=== PATIENT | female | born 1945 | race Caucasian/White ===

== ENCOUNTER 2020-03-15 08:23 | Emergency (ER) | payer OTHER ==
[2020-03-15 08:29] VITALS: BP 150/62; PULSE 73; TEMP 97.8; BMI 35.2
--- OUTSIDE RECORDS SUMMARY | 2020-03-15 08:36 | XMS ---
:1945 Author Organization [facility] Support Name Relationship Address Phone RE Unavailable Unavailable Unavailable JAY JAMES DAUGHTER [address] [place] [address] DALE JAMES DA [address] [facility] [phone] [place] [address] RETIRED Unavailable NA """""" [place] [address] WAGGONERELIZABETH Ellis PATSY [address] [facility] [phone] [place] [address] Re-disclosure Warning The records that you are about to access may contain information from federally- assisted alcohol or drug abuse programs. If such information is present, then the following federally mandated warning applies: This information has been disclosed to you from records protected by federal confidentiality rules (42 CFR part 2). The federal rules prohibit you from making any further disclosure of this information unless further disclosure is expressly permitted by the written consent of the person to whom it pertains or as otherwise permitted by 42 CFR part 2. A general authorization for the release of medical or other information is NOT sufficient for this purpose. The Federal rules restrict any use of the information to criminally investigate or prosecute any alcohol or drug abuse patient.The records that you are about to access may contain highly sensitive health information, the redisclosure of which is protected by Article 27-F of the [facility] Public Health law. If you continue you may haveaccess to information: Regarding HIV / AIDS; Provided by facilities licensed or operated by the [facility] Office of Mental Health; or Provided by the [facility] Office for People With Developmental Disabilities. If such information is present, then the following [facility] mandated warning applies: This information has been disclosed to you from confidential records which are protected by state law. State law prohibits you from making any further disclosure of this information without the specific written consent of the person to whom it pertains, or as otherwise permitted by law. Any unauthorized further disclosure in violation of state law may result in a fine or [place] [facility] sentence or both. A general authorization for the release of medical or other information is NOT sufficient authorization for further disclosure. Insurance Providers Payer name Policy type Policy ID Covered Covered democrat's Policy P nitesh / Coverage democrat ID relationship to Foy Inf ormation type foy AETNA [id number] SP [id number] MEDICARE AETNA USHC [id number] self [id number] AETNA USHC O [id number] 01 [id number] Results ID Date Data Source [id number] 03/04/2020 11:32:00 AM EDT [facility] Received: 03/04/2020 at 01:49:00 QTE : [facility], [address], Jose Barney MD Received: 03/04/2020 at 01:49:00 QTE : [place], [address]Jose MD Received: 03/04/2020 at 01:49:00 QTE : [facility] [place], [address], Jose Barney MD Received: 03/04/2020 at 01:49:00 QTE : [facility] [place], [address]Jose MD Received: 03/04/2020 at 01:49:00 QTE : [facility] [place], [address]Jose MD Received: 03/04/2020 at 01:49:00 QTE : [facility] [place], [address]Jose MD Received: 03/04/2020 at 01:49:00 QTE : [facility] [place], [address]Jose MD Received: 03/04/2020 at 01:49:00 QTE : [facility] [place], [address], Jose Barney MD Name Value Range Interpretation Description Data Sup porting Code Source(s) Document(s ) Cholesterol 222 <200 Above high [facility] [Mass/volume] mg/dL normal Diagnostics in Serum or Plasma Cholesterol in 49 mg/dL > OR = Below low normal [facility] HDL 50 Diagnostics [Mass/volume] in Serum or Plasma Triglyceride 169 <150 Above high [facility] [Mass/volume] mg/dL normal Diagnostics in Serum or Plasma Cholesterol in 142 Above high [facility] LDL mg/dL normal Diagnostics [Mass/volume] (calc) in Serum or Plasma by calculation Reference range: <100Desirable range <10 0 mg/dL for primary prevention;<70 mg/dL for patients with CHD or diabetic patientswi th > or = 2 CHD risk factors.LDL-C is now calculated using the Cornelius lation, which is a validated novel method providingbetter accuracy than the Friede jennifer equation in theestimation of LDL-C.Trav SS et al. NELIA. 2013;310(19 ): 0482-7172(http://education.[employer] EARTHNET.com/faq/BWI670) Cholesterol.total/Cholesterol in 4.5 (calc) <5.0 Normal (applies [facility] HDL [Mass Ratio] in Serum or to non-numeric Diagnostics Plasma results) Cholesterol non HDL [Mass/volume] 173 mg/dL <130 Above high [facility] in Serum or Plasma (calc) normal Diagnostics For patients with diabetes plus 1 major ASCVD riskfactor, treating to a non-HDL-C goal of <100 mg/dL(LDL-C of <70 mg/dL) i s considered a therapeuticoption. ID Date Data Source [id number] 03/04/2020 11:32:00 AM EDT [facility] Received: 03/04/2020 at 01:49:00 QTE : [facility], [address], Jose Barney MD Received: 03/04/2020 at 01:49:00 QTE : [facility], [address], Jose Barney MD Received: 03/04/2020 at 01:49:00 QTE : [facility], Lorenzo Burk, [place], [address], Jose Barney MD Received: 03/04/2020 at 01:49:00 QTE : [facility], Lorenzo Burk, [place], [address], Jose Barney MD Received: 03/04/2020 at 01:49:00 QTE : [facility], Lorenzo Burk, [place], [address], Jose Barney MD Received: 03/04/2020 at 01:49:00 QTE : [facility], Lorenzo Burk, [place], [address], Jose Barney MD Received: 03/04/2020 at 01:49:00 QTE : [facility], [place], [address], Jose Barney MD Received: 03/04/2020 at 01:49:00 QTE : [facility], Lorenzo Burk, [place], [address], Jose Barney MD Name Value Range Interpretation Description Data Source(s ) Supporting Code Document(s ) SPECIMEN [facility] COMPROMISED Whole blood, unspun or partially spun Vollee l barrier tubewas received more than 6 hours since collection. Afalse elevation of K, Phos and LD as well as a falsedecrease in glucose may occur due to prolonged conta ctwith red cells. ID Date Data Source [id number] 03/04/2020 11:32:00 AM EDT [facility] Received: 03/04/2020 at 01:49:00 QTE : [facility], [place], [address], Jose Barney MD Received: 03/04/2020 at 01:49:00 QTE : [facility], [place], [address], Jose Barney MD Received: 03/04/2020 at 01:49:00 QTE : [facility], Lorenzo Burk, [place], [address], Jose Barney MD Received: 03/04/2020 at 01:49:00 QTE : [facility], [place], [address], Jose Barney MD Received: 03/04/2020 at 01:49:00 QTE : [facility], Lorenzo Burk, [place], [address], Jose Barney MD Received: 03/04/2020 at 01:49:00 QTE : [facility], Lorenzo Burk, [place], [address], Jose Barney MD Received: 03/04/2020 at 01:49:00 QTE : [facility], Lorenzo Burk, [place], [address], Jose Barney MD Received: 03/04/2020 at 01:49:00 QTE : [facility], [place], [address], Jose Barney MD Name Value Range Interpretation Description Data Source(s ) Supporting Code Document(s ) Glucose 198 mg/dL 65-99 Above high normal [facility] [Mass/volum Diagnostics e] in Serum or Plasma Fasting reference intervalFor someone without known diabetes, a glucosevalue >125 mg/dL indicates that t hey may havediabetes and this should be confirmed with afollow-up test. Urea nitrogen 15 mg/dL 7-25 Normal (applies to [facility]agn[facility] [Mass/volume] in Serum non-numeric results) or Plasma Creatinine 0.70 mg/dL 0.60-0.93 Normal (applies to [facility] Tg gnostics [Mass/volume] in Serum non-numeric results) or Plasma For patients >49 years of age, the refer ence limitfor Creatinine is approximately 13% higher for peopleidentified as -A merican. Glomerular filtration 85 mL/min/1.73m2 > OR = Normal (applies [facility] rate/1.73 sq 60 to non-numeric Diagnostics M.predicted [Volume results) Rate/Area] in Serum, Plasma or Blood by Creatinine-based formula (MDRD) Glomerular filtration 99 mL/min/1.73m2 > OR = Normal (applies [facility] rate/1.73 sq M 60 to non-numeric Diagnostic s predicted among blacks results) [Volume Rate/Area] in Serum or Plasma by Creatinine-based formula (MDRD) Urea NOT APPLICABLE 6-22 [facility] nitrogen/Creatinine (calc) Diagnostic s [Mass Ratio] in Serum or Plasma Sodium [Moles/volume] 135 mmol/L 135-146 Normal (applies Q uest in Serum or Plasma to non-numeric Diagno stics results) Potassium 4.2 mmol/L 3.5-5.3 Normal (applies [facility] [Moles/volume] in to non-numeric Diagnos tics Serum or Plasma results) Chloride 104 mmol/L 98-110 Normal (applies [facility] [Moles/volume] in to non-numeric Diagnos tics Serum or Plasma results) Carbon dioxide, total 23 mmol/L 20-32 Normal (applies Qu est [Moles/volume] in to non-numeric Diagnos tics Serum or Plasma results) Calcium [Mass/volume] 8.5 mg/dL 8.6-10.4 Below low normal Q uest in Serum or Plasma Diagnostics Protein [Mass/volume] 6.6 g/dL 6.1-8.1 Normal (applies Qu est in Serum or Plasma to non-numeric Diagno stics results) Albumin [Mass/volume] 3.7 g/dL 3.6-5.1 Normal (applies Qu est in Serum or Plasma to non-numeric Diagno stics results) Globulin [Mass/volume] 2.9 g/dL (calc) 1.9-3.7 Normal (applies [facility] in Serum by to non-numeric Diagnostics calculation results) Albumin/Globulin [Mass 1.3 (calc) 1.0-2.5 Normal (applies [facility] Ratio] in Serum or to non-numeric Diagno stics Plasma results) Bilirubin.total 0.3 mg/dL 0.2-1.2 Normal (applies [facility] [Mass/volume] in Serum to non-numeric Di agnostics or Plasma results) Alkaline phosphatase 119 U/L 37-153 Normal (applies Que st [Enzymatic to non-numeric Diagnostics activity/volume] in results) Serum or Plasma Aspartate 13 U/L 10-35 Normal (applies [facility] aminotransferase to non-numeric Diagnost ics [Enzymatic results) activity/volume] in Serum or Plasma Alanine 12 U/L 6-29 Normal (applies [facility] aminotransferase to non-numeric Diagnost ics [Enzymatic results) activity/volume] in Serum or Plasma ID Date Data Source [id number] 03/04/2020 11:32:00 AM EDT [facility] Received: 03/04/2020 at 01:49:00 QTE : [facility], Lorenzo Burk, [place], [address], Jose Barney MD Received: 03/04/2020 at 01:49:00 QTE : [facility], Lorenzo Burk, [place], [address], Jose Barney MD Received: 03/04/2020 at 01:49:00 QTE : [facility], Lorenzo Burk, [place], [address], Jose Barney MD Received: 03/04/2020 at 01:49:00 QTE : [facility], Lorenzo Burk, [place], [address], Jose Barney MD Received: 03/04/2020 at 01:49:00 QTE : [facility], Lorenzo Burk, [place], [address], Jose Barney MD Received: 03/04/2020 at 01:49:00 QTE : [facility], Lorenzo Burk, [place], [address], Jose Barney MD Received: 03/04/2020 at 01:49:00 QTE : [facility], [place], [address], Jose Barney MD Received: 03/04/2020 at 01:49:00 QTE : [facility], Lorenzo Burk, [place], [address], Jose Barney MD Name Value Range Interpretation Description Data Sup porting Code Source(s) Document(s ) Leukocytes 9.5 3.8-10.8 Normal (applies [facility] [#/volume] in Thousand to non-numeric Diagnostics Blood by /uL results) Automated count Erythrocytes 3.59 3.80-5.1 Below low normal [facility] [#/volume] in Million/ 0 Diagnostics Blood by uL Automated count Specimen was prewarmed to 37 degreesto o btain results.Cold agglutinin/cryoglobulin suspected. Hemoglobin 9.4 g/dL 11.7-15.5 Below low [facility] [Mass/volume] in Blood normal Hematocrit [Volume 30.7 % 35.0-45.0 Below low [facility] Fraction] of Blood by normal Automated count Erythrocyte mean 85.5 fL 80.0-100.0 Normal (applies [facility] corpuscular volume to non-numeric [Entitic volume] by results) Automated count Erythrocyte mean 26.2 pg 27.0-33.0 Below low [facility] corpuscular hemoglobin normal [Entitic mass] by Automated count Erythrocyte mean 30.6 g/dL 32.0-36.0 Below low [facility] corpuscular hemoglobin normal concentration [Mass/volume] by Automated count Erythrocyte 13.3 % 11.0-15.0 Normal (applies [facility] distribution width to non-numeric [Ratio] by Automated results) count Platelets [#/volume] in 316 140-400 Normal (applies [facility] Blood by Automated Thousand/uL to non-numeric count results) Platelet mean volume 11.4 fL 7.5-12.5 Normal (applies Que [facility] Diagn[facility] [Entitic volume] in to non-numeric Blood by Delphine results) Neutrophils [#/volume] 5957 cells/uL 2730-0497 Normal (applies [facility] in Blood by Automated to non-numeric count results) Lymphocytes [#/volume] 2727 cells/uL 850-3900 Normal (applies [facility] in Blood by Automated to non-numeric count results) Monocytes [#/volume] in 608 cells/uL 200-950 Normal (applies [facility] Blood by Automated to non-numeric count results) Eosinophils [#/volume] 171 cells/uL 15-500 Normal (applies [facility] in Blood by Automated to non-numeric count results) Basophils [#/volume] in 38 cells/uL 0-200 Normal (applies [facility] Blood by Automated to non-numeric count results) Neutrophils/100 62.7 % 38-80 Normal (applies [facility] Di agnostics leukocytes in Blood by to non-numeric Automated count results) Lymphocytes/100 28.7 % 15-49 Normal (applies [facility]nostics leukocytes in Blood by to non-numeric Automated count results) Monocytes/100 6.4 % 0-13 Normal (applies [facility] Diag nostics leukocytes in Blood by to non-numeric Automated count results) Eosinophils/100 1.8 % 0-8 Normal (applies [facility] Di agnostics leukocytes in Blood by to non-numeric Automated count results) Basophils/100 0.4 % 0-2 Normal (applies [facility] Diag nostics leukocytes in Blood by to non-numeric Automated count results) Service comment [facility] Red blood cell agglutination present. ID Date Data Source [id number] 03/04/2020 11:32:00 AM EDT [facility] Received: 03/04/2020 at 01:49:00 QTE : [facility], [place], [address], Jose Barney MD Received: 03/04/2020 at 01:49:00 QTE : [facility], [place], [address], Jose Barney MD Received: 03/04/2020 at 01:49:00 QTE : [facility], Lorenzo Harmeet Burk [facility] [place], [address], Jose Barney MD Received: 03/04/2020 at 01:49:00 QTE : [facility] [place], [address]Jose MD Received: 03/04/2020 at 01:49:00 QTE : [facility], [place], [address], Jose Barney MD Received: 03/04/2020 at 01:49:00 QTE : [facility] [place], [address], Jose Barney MD Received: 03/04/2020 at 01:49:00 QTE : [facility] [place], [address], Jose Barney MD Received: 03/04/2020 at 01:49:00 QTE : [facility], [place], [address], Jose Barney MD Name Value Range Interpretation Description Data Sup porting Code Source(s) Document(s ) Triiodothyronine 78 76-181 Normal (applies [facility] (T3) [Mass/volume] ng/dL to non-numeric Diagno stics in Serum or Plasma results) ID Date Data Source [id number] 03/04/2020 11:32:00 AM EDT [facility] Received: 03/04/2020 at 01:49:00 QTE : [facility], [place], [address], Jose Barney MD Received: 03/04/2020 at 01:49:00 QTE : [facility], [place], [address], Jose Barney MD Received: 03/04/2020 at 01:49:00 QTE : [facility], [place], [address], Jose Barney MD Received: 03/04/2020 at 01:49:00 QTE : [facility], [place], [address], Jose Barney MD Received: 03/04/2020 at 01:49:00 QTE : [facility] [place], [address], Jose Barney MD Received: 03/04/2020 at 01:49:00 QTE : [facility] [place], [address], Jose Barney MD Received: 03/04/2020 at 01:49:00 QTE : [facility] [place], [address], Jose Barney MD Received: 03/04/2020 at 01:49:00 QTE : [facility], Lorenzo Nicholascolm Bhargavi, [place], [address], Jose Barney MD Name Value Range Interpretation Description Data Source(s ) Supporting Code Document(s ) Thyroxine 0.9 0.8-1.8 Normal (applies [facility] (T4) free ng/dL to non-numeric Diagnostics [Mass/volume results) ] in Serum or Plasma ID Date Data Source [id number] 03/04/2020 11:32:00 AM EDT [facility] Received: 03/04/2020 at 01:49:00 QTE : [facility], Lorenzo Nichol[place]orosa Burk, [place], [address], Jose Barney MD Received: 03/04/2020 at 01:49:00 QTE : [facility], [place], [address], Jose Barney MD Received: 03/04/2020 at 01:49:00 QTE : [facility], Lorenzo Nicholascolm [place], [place], [address], Jose Barney MD Received: 03/04/2020 at 01:49:00 QTE : [facility], [place], [address], Jose Barney MD Received: 03/04/2020 at 01:49:00 QTE : [facility], [place], [address], Jose Barney MD Received: 03/04/2020 at 01:49:00 QTE : [facility], [place], [address], Jose Barney MD Received: 03/04/2020 at 01:49:00 QTE : [facility], [place], [address], Jose Barney MD Received: 03/04/2020 at 01:49:00 QTE : [facility], [place], [address], Jose Barney MD Name Value Range Interpretation Description Data Sup porting Code Source(s) Document(s ) Thyrotropin 6.06 0.40-4.5 Above high normal [facility] [Units/volume] mIU/L 0 Diagnostics in Serum or Plasma ID Date Data Source [id number] 03/04/2020 11:32:00 AM EDT [facility] Received: 03/04/2020 at 01:49:00 QTE : [facility], [place], [address], Jose Barney MD Received: 03/04/2020 at 01:49:00 QTE : [facility], [place], [address], Jose Barney MD Received: 03/04/2020 at 01:49:00 QTE : [facility], [place], [address], Jose Barney MD Received: 03/04/2020 at 01:49:00 QTE : [facility], [place], [address], Jose Barney MD Received: 03/04/2020 at 01:49:00 QTE : [facility], [place], [address], Jose Barney MD Received: 03/04/2020 at 01:49:00 QTE : [facility], [place], [address], Jose Barney MD Received: 03/04/2020 at 01:49:00 QTE : [facility], [place], [address], Jose Barney MD Received: 03/04/2020 at 01:49:00 QTE : [facility], [place], [address], Jose Barney MD Name Value Range Interpretation Description Data Source(s ) Supporting Code Document(s ) Hemoglobin 10.7 % <5.7 Above high normal [facility] A1c/Hemoglobin of total Diagnostics .total in Hgb Blood For someone without known diabetes, a he moglobin D8caohvt of 6.5% or greater indicates that they may havediabetes and this should be confirmed with a follow-uptest.For someone with known tg betes, a value <7% indicatesthat their diabetes is well controlled and a valueg reater than or equal to 7% indicates suboptimalcontrol. A1c targets should be individualized based onduration of diabetes, age, comorbid conditions, andother consi derations.Currently, no consensus exists regarding use ofhemoglobin A1c for diagn osis of diabetes for children. ID Date Data Source [id number] 02/24/2020 02:34:00 PM EDT [facility] Name Value Range Interpretation Code Description Data Autumn rce(s) Supporting Document(s ) SARS-CoV-2 [facility] BY PCR This lab was ordered by BRITTNI Palacios C and reported by [facility]. Procedure
[2020-03-15] MEDS ORDERED: LACTATED RINGERS SOLUTION 1,000 ML/1,000 ML INFUS.BAG IV STA (08:45)
[2020-03-15] MEDS ORDERED: ACETAMINOPHEN 1000 MG/100 ML VIAL (NON FORMULARY) IVPB ONE (08:45)
[2020-03-15] MEDS ORDERED: ACETAMINOPHEN INJECTION 100 ML IVPB ONE (08:52)
--- NOTE | 2020-03-15 09:05 | PDOC ---
History of Present Illness - General Chief Complaint: Pain Stated Complaint: ABD.PAIN Time Seen by Provider: 03/15/20 08:30 - History of Present Illness Initial Comments: HPI: 03/15/20 08:48 75 yo F PMH HTN, IDDM, peripheral neuropathy, PVD s/p bilateral stents per Dr. Leija on Plavix, 46 years ago, endometriosis s/p hysterectomy 18 years ago, presenting with LUQ abd pain. Ms. Garnett notes that her LUQ abd pain began around Feb 27, initially constant, low intensity, burning/tingling pain, radiating into her L flank, worsened by getting bumped in a car ride and having hot water applied to the site, relieved with acetaminophen. However, pain has grown more severe, now 02/12 this morning. Notably, had endoscopy with Dr. Cooper 2 weeks ago, found only gastric polyp. Patient expresses concern about potential shingles despite lack of skin changes or pain with light touch, because she has heard that shingles can present without skin changes. Denies N/V, diarrhea, fevers/chills, CP, SOB, constipation, urinary symptoms. ROS: GENERAL/CONSTITUTIONAL: denies fever, chills, diaphoresis, generalized weakness, malaise HEAD, EYES, EARS, NOSE AND THROAT: denies rhinorrhea, nasal congestion, throat pain, throat swelling, visual changes NEUROLOGIC: denies headache, focal weakness, dizziness, mental status changes CARDIOVASCULAR: denies chest pain, syncope, palpitations, irregular heart rate, lightheadedness, peripheral edema RESPIRATORY: denies cough, shortness of breath, dyspnea with exertion, wheezing GASTROINTESTINAL: endorses LUQ abdominal pain, abdominal distension, nausea, vomiting, diarrhea, constipation, melena, hematochezia GENITOURINARY: endorses L flank pain. Denies dysuria, frequency, urgency, hematuria MUSCULOSKELETAL: denies myalgia, arthralgia, joint swelling, back pain, neck pain SKIN: denies rash, itching PE: Gen: well-developed, well-nourished, NAD Neuro: AAOX4, CN II-XII intact, FTN intact, EOMI, PERRLA, 5/5 strength, SILT. No pain with light touch over LUQ or L flank HEENT: atraumatic, normocephalic Neck: trachea midline, supple CV: regular rate, regular rhythm, no murmurs, rubs, or gallops Pulm: CTA b/l, no wheezing Abd: soft, non-distended, LUQ tenderness. No tenderness to L side. No CVA tenderness. MSK: full ROM, intact pulses Extr: no edema, no deformities Skin: warm, dry MDM: Concern for potential ACS v gastritis v intra-abdominal pathology. - CBC, CMP - lipase - EKG, CXR - trop - Ofirmev - reassess - consider GI cocktail if Ofirmev alone is ineffective - consider CT abd/pelvis w/o contrast 03/15/20 09:02 EKG normal sinus at 74 bpm, OR 144, QRS 84, QTc 415, flattened T waves in V1, V4-V6 03/15/20 09:52 CBC 10.1, WBC otherwise unremarkable. CMP unremarkable, Cr wnl. Trop negative. 03/15/20 09:56 Patient reassessed, states that pain is improved. Now 7/10. No longer tender. 03/15/20 10:03 CXR: large heart, sclerotic knob, coarse lung changes. There is a density in the right cardiophrenic angle which could represent fat deposition. 03/15/20 11:56 CT abd/pelvis: no acute pathology. Will dc with Maalox for home, referral to GI. Past History - Medical History Allergies/Adverse Reactions: Allergies Allergy/AdvReac Type Severity Reaction Status Date / Time methocarbamol [From Robaxin] Allergy Hives Verified 03/15/20 08:49 nabumetone [From Relafen] Allergy Hives Verified 03/15/20 08:49 Home Medications: Ambulatory Orders Amlodipine Besylate [Norvasc -] 50 mg PO DAILY 03/15/20 Clopidogrel Bisulfate [Plavix] 75 mg PO DAILY 03/15/20 Gabapentin [Neurontin -] 100 mg PO BID 03/15/20 Levothyroxine [Synthroid -] 150 mcg PO DAILY 03/15/20 Losartan Potassium [Cozaar] 100 mg PO DAILY 03/15/20 Metformin HCl [Glucophage] 1,000 mg PO BID 03/15/20 COPD: No Diabetes: Yes HTN: Yes Other medical history: neuropathy - Psycho-Social/Smoking History Smoking History: Never smoked *Physical Exam - Vital Signs Last Vital Signs Temp Pulse Resp BP Pulse Ox 97.8 F 73 18 150/62 100 03/15/20 08:25 03/15/20 08:25 03/15/20 08:25 03/15/20 08:25 03/15/20 08:25 ED Treatment Course - LABORATORY CBC & Chemistry Diagram: 03/15/20 09:00 03/15/20 09:00 - RADIOLOGY Radiology Studies Ordered: Category Date Time Status CHEST PA & LAT [RAD] Stat Radiology 03/15/20 08:44 Ordered Discharge - Discharge Information Problems reviewed: Yes Clinical Impression/Diagnosis: LUQ abdominal pain Condition: Stable Disposition: HOME - Admission No - Follow up/Referral Referrals: Matthew Sanders [Primary Care Provider] - Tristin Cooper MD [Staff Physician] - - Patient Discharge Instructions Patient Printed Discharge Instructions: DI for Abdominal Pain-Adult Additional Instructions: You were seen with left sided abdominal pain. Your labs were unremarkable, and your CT scan did not show any concerning findings. Your symptoms improved with medication. Please take your Maalox every 6 hours as needed for abdominal pain. Please call to make an appointment with a GI specialist, the number is listed in your paperwork. Follow up with your primary care doctor within one week. Return to the ER if you develop new or worsening symptoms. - Post Discharge Activity
[2020-03-15 09:11] LABS: BASO % 1.6 % (0-2.0); EOS % 2.4 % (0-4.5); HEMATOCRIT 30.6 % (32.4-45.2); HEMOGLOBIN 10.1 GM/dL (10.7-15.3); LYMPH % 28.5 % (8-40); MCH 27.4 pg (25.7-33.7); MCHC 32.9 g/dl (32.0-36.0); MEAN CELL VOLUME 83.3 fl (80-96); MEAN PLT VOLUME 9.2 fl (7.5-11.1); MONO % 5.9 % (3.8-10.2); NEUT % 61.6 % (42.8-82.8); PLATELET COUNT 329 K/MM3 (134-434); RBC 3.68 M/mm3 (3.60-5.2); RDW 14.6 % (11.6-15.6); WHITE BLOOD COUNT 8.5 K/mm3 (4.0-10.0)
[2020-03-15 09:40] LABS: ALBUMIN 3.1 g/dl (3.4-5.0); ALK PHOS 135 U/L (45-117); ANION GAP 5 MMOL/L (8-16); BILIRUBIN,TOTAL 0.2 mg/dL (0.2-1); BLOOD UREA NITROGEN 12.6 mg/dL (7-18); CALCIUM 8.6 mg/dL (8.5-10.1); CHLORIDE 108 mmol/L (98-107); CO2 26 mmol/L (21-32); CREATININE 0.8 mg/dL (0.55-1.3); GLUCOSE,RANDOM 127 mg/dL (74-106); LIPASE 118 U/L (73-393); POTASSIUM 4.4 mmol/L (3.5-5.1); SGOT/AST 15 U/L (15-37); SGPT/ALT 18 U/L (13-61); SODIUM 139 mmol/L (136-145); TOT PROT 7.2 g/dl (6.4-8.2)
[2020-03-15] MEDS ORDERED: MAG HYDROX/AL HYDROX/SIMETH -MYLANTA- ORAL SUSPENSION PO ONE (09:56)
[2020-03-15] MEDS ORDERED: FAMOTIDINE 20 MG/50 ML IVPB 20 MG/50 ML MG IVPB ONE ×2 (09:57→09:59)
[2020-03-15] MEDS ORDERED: MAG HYDROX/AL HYDROX/SIMETH 30 ML UNIT-DOSE CUP ONE (09:59)
[2020-03-15] MEDS ORDERED: ACETAMINOPHEN 325 MG TABLET (FP) PO ONE (10:21)
[2020-03-15] MEDS ORDERED: diazePAM 5 MG TABLET PO ONE (10:31)
[2020-03-15] MEDS ORDERED: ACETAMINOPHEN 325 MG TABLET (FP) ONE (10:35)
[2020-03-15] MEDS ORDERED: diazePAM 5 MG TABLET ONE (10:35)
--- NOTE | 2020-03-15 10:41 | PDOC ---
Documentation entered by Leeann Hurt SCRIBE, acting as scribe for Becky Beck MD. Becky Beck MD: This documentation has been prepared by the Blu thurman Sydney, SCRIBE, under my direction and personally reviewed by me in its entirety. I confirm that the documentation accurately reflects all work, treatment, procedures, and medical decision making performed by me. Attending Attestation - Resident Resident Name: LundZohaibjuliette - ED Attending Attestation I have performed the following: I have examined & evaluated the patient, The case was reviewed & discussed with the resident, I agree w/resident's findings & plan, Exceptions are as noted - HPI HPI: 03/15/20 09:12 Patient is a 75 year old female with a significant past medical history of HTN, IDDM, peripheral neuropathy, PVD s/p bilateral stents (on Plavix), endometriosis (s/p hysterectomy 18 years ago) who presents to the ED with progressively worsening left upper quadrant and flank pain for two weeks. As per patient, she was seen at the hospital on 02/27 for similar symptoms, where her pain was low in intensity and noted some burning and tingling. She endorses pain exacerbation with movement and some alleviation of pain with acetaminophen. Patient presents to the ED today as her pain is currently 9/10 and less reactive to acetaminophen. Denies headache, fever, chills, shortness of breath, chest pain, nausea, vomiting, diarrhea, or urinary changes. Allergies: methocarbamol, nabumetone PCP: Dr. Sanders - Physicial Exam PE: 03/15/20 10:26 Agree with resident exam. Patient is alert and oriented and in no acute distress. abdomen soft, non tender, non distended. No skin findings. No excessive sensitivity to light touch. - Medical Decision Making 03/15/20 10:35 Pt presents to the ED complaining of L flank pain for three weeks. Pain described by the patient sounds like neuropathic pain, with sensitivity to warm water and light touch. However, the patient has no rash and is not sensitive to light touch on exam. Physical findings are not consistent with shingles. will check CT scan to rule out intraabdominal pathology and likely discharge home if scan is negative. Discharge - Discharge Information Problems reviewed: Yes Clinical Impression/Diagnosis: LUQ abdominal pain Condition: Stable Disposition: HOME - Additional Discharge Information Prescriptions: Calcium Carbonate/Simethicone [Maalox Advanced Tab Chew] 1 each PO Q6H PRN #30 tab.chew PRN Reason: Indigestion - Follow up/Referral Referrals: Matthew Sanders [Primary Care Provider] - Tristin Cooper MD [Staff Physician] - - Patient Discharge Instructions Patient Printed Discharge Instructions: DI for Abdominal Pain-Adult Additional Instructions: You were seen with left sided abdominal pain. Your labs were unremarkable, and your CT scan did not show any concerning findings. Your symptoms improved with medication. Please take your Maalox every 6 hours as needed for abdominal pain. Please call to make an appointment with a GI specialist, the number is listed in your paperwork. Follow up with your primary care doctor within one week. Return to the ER if you develop new or worsening symptoms. - Post Discharge Activity
--- NOTE | 2020-03-15 21:44 | EKG ---
Test Reason : Blood Pressure : / mmHG Vent. Rate : 074 BPM Atrial Rate : 074 BPM P-R Int : 144 ms QRS Dur : 084 ms QT Int : 374 ms P-R-T Axes : 046 010 136 degrees QTc Int : 415 ms NORMAL SINUS RHYTHM NONSPECIFIC T WAVE ABNORMALITY ABNORMAL ECG WHEN COMPARED WITH ECG OF 13-JAN-2009 08:24, PREMATURE ATRIAL COMPLEXES ARE NO LONGER PRESENT NONSPECIFIC T WAVE ABNORMALITY, WORSE IN LATERAL LEADS Confirmed by Mary Simmons ([id number]) on 03/15/2020 9:44:17 PM Referred By: Confirmed By:Mary Simmons
== END 2020-03-15 12:37 | disposition home or self-care (01) ==
LOC: JER 08:23
PROC: 3E033NZ Introduction of Analgesics, Hypnotics, Sedatives into Peripheral Vein, Percutaneous Approach (ICD-10-PCS; principal; 2020-03-15)
PROC: 3E033GC Introduction of Other Therapeutic Substance into Peripheral Vein, Percutaneous Approach (ICD-10-PCS; 2020-03-15)
PROC: 3E0337Z Introduction of Electrolytic and Water Balance Substance into Peripheral Vein, Percutaneous Approach (ICD-10-PCS; 2020-03-15)
DX: R10.32 Left lower quadrant pain (principal)
CPT/HCPCS: 36415; 71046-TC-FY; 74177-TC; 80053; 82550; 83690; 84484; 85025; 93005; 93010; 99285-25; J0131; Q9967